=== PATIENT | male | born 1985 | race Asian ===

== ENCOUNTER 2019-09-04 12:36 | Emergency (ER) | payer OTHER ==
--- NOTE | 2019-09-04 13:48 | ED ---
Abdominal Pain/Female - HPI Summary HPI Summary: 34 y/o M presenting to [facility] c/o RUQ pain x3 days. - History of Current Complaint Chief Complaint: EDAbdPain Stated Complaint: ABOMINAL PAIN PER PT Time Seen by Provider: 09/04/19 13:46 Pain Intensity: 4 Allergies/Adverse Reactions: Allergies Allergy/AdvReac Type Severity Reaction Status Date / Time No Known Allergies Allergy Verified 09/04/19 12:41 Home Medications: Home Medications NK [No Home Medications Reported] 09/04/19 [History Confirmed 09/04/19] PMH/Surg Hx/FS Hx/Imm Hx Infectious Disease History: No Infectious Disease History: Denies: Traveled Outside the [place] in Last 30 Days - Social History Alcohol Use: None Substance Use Type: Reports: None Hx Tobacco Use: No Smoking Status (MU): Never Smoked Tobacco Physical Exam - Summary Physical Exam Summary: Constitutional: Well-developed, Well-nourished, Alert. (-) Distressed Skin: Warm, Dry HENT: Normocephalic; Atraumatic Eyes: Conjunctiva normal Neck: Musculoskeletal ROM normal neck. (-) JVD, (-) Stridor, (-) Nuchal rigidity Cardio: Rhythm regular, rate normal, Heart sounds normal; Intact distal pulses; Radial pulses are 2+ and symmetric. (-) Murmur Pulmonary/Chest wall: Effort normal. (-) Respiratory distress, (-) Wheezes, (-) Rales Abd: Soft, (-) tenderness, (-) Distension, (-) Guarding, (-) Rebound Musculoskeletal: (-) Edema Lymph: (-) Cervical adenopathy Neuro: Alert, Oriented x3 Psych: Mood and affect Normal Triage Information Reviewed: Yes Vital Signs On Initial Exam: Initial Vitals Temp Pulse Resp BP Pulse Ox 97.2 F 103 18 144/102 98 09/04/19 12:37 09/04/19 12:37 09/04/19 12:37 09/04/19 12:37 09/04/19 12:37 Vital Signs Reviewed: Yes Procedures - Sedation Patient Received Moderate/Deep Sedation with Procedure: No Diagnostics - Vital Signs Vital Signs Temp Pulse Resp BP Pulse Ox 09/04/19 13:38 98.5 F 85 132/85 97 09/04/19 12:37 97.2 F 103 18 144/102 98 - Laboratory Lab Statement: Any lab studies that have been ordered have been reviewed, and results considered in the medical decision making process. Discharge ED - Discharge Plan Referrals: Estevan Regan MD [Primary Care Provider] - - Attestation Statements Document Initiated by Scribe: Yes Documenting Scribe: Karyna Prieto Provider For Whom Scribe is Documenting (Include Credential): April Thakur MD Scribe Attestation: Karyna Orta, scribed for April Thakur MD on 09/04/19 at 1350.
--- NOTE | 2019-09-04 13:56 | ED ---
Abdominal Pain/Male - HPI Summary HPI Summary: 34 y/o M without any PMHx presenting to [facility] c/o worsening 4/10 RUQ pain described as stretching starting 4-5 days ago. Pain is worse after eating. Started as intermittent. Now constant. He denies fever, nausea/vomiting/diarrhea , cough. No surgical hx. No FHx. - History of Current Complaint Chief Complaint: EDAbdPain Stated Complaint: ABOMINAL PAIN PER PT Time Seen by Provider: 09/04/19 13:46 Hx Obtained From: Patient Onset/Duration: Lasting Days - 4-5, Still Present Timing: Constant, Intermittent Severity Currently: Moderate Pain Intensity: 4 Pain Scale Used: 0-10 Numeric Location: Discrete At: RUQ Character: Other: - stretching Aggravating Factor(s): Food Alleviating Factor(s): Nothing Associated Signs And Symptoms: Positive: Negative - fever, n/v/d, cough - Allergies/Home Medications Allergies/Adverse Reactions: Allergies Allergy/AdvReac Type Severity Reaction Status Date / Time No Known Allergies Allergy Verified 09/04/19 12:41 Home Medications: Home Medications NK [No Home Medications Reported] 09/04/19 [History Confirmed 09/04/19] PMH/Surg Hx/FS Hx/Imm Hx Endocrine/Hematology History: Denies: Hx Diabetes Cardiovascular History: Denies: Hx Hypertension Sensory History: Reports: Hx Contacts or Glasses Opthamlomology History: Reports: Hx Contacts or Glasses - Surgical History Surgical History: None Infectious Disease History: No Infectious Disease History: Denies: Traveled Outside the [place] in Last 30 Days - Family History Known Family History: Negative: Hypertension, Diabetes - Social History Alcohol Use: None Substance Use Type: Reports: None Smoking Status (MU): Never Smoked Tobacco Review of Systems Negative: Fever Negative: Cough Positive: Abdominal Pain - RUQ. Negative: Vomiting, Diarrhea, Nausea All Other Systems Reviewed And Are Negative: Yes Physical Exam - Summary Physical Exam Summary: Constitutional: Well-developed, Well-nourished, Alert. (-) Distressed Skin: Warm, Dry HENT: Normocephalic; Atraumatic Eyes: Conjunctiva normal Neck: Musculoskeletal ROM normal neck. (-) JVD, (-) Stridor, (-) Nuchal rigidity Cardio: Rhythm regular, rate normal, Heart sounds normal; Intact distal pulses; Radial pulses are 2+ and symmetric. (-) Murmur Pulmonary/Chest wall: Effort normal. (-) Respiratory distress, (-) Wheezes, (-) Rales Abd: Soft, RUQ tenderness, (-) Distension, (-) Guarding, (-) Rebound Musculoskeletal: (-) Edema Lymph: (-) Cervical adenopathy Neuro: Alert, Oriented x3 Psych: Mood and affect Normal Triage Information Reviewed: Yes Vital Signs On Initial Exam: Initial Vitals Temp Pulse Resp BP Pulse Ox 97.2 F 103 18 144/102 98 09/04/19 12:37 09/04/19 12:37 09/04/19 12:37 09/04/19 12:37 09/04/19 12:37 Vital Signs Reviewed: Yes Procedures - Sedation Patient Received Moderate/Deep Sedation with Procedure: No Diagnostics - Vital Signs Vital Signs Temp Pulse Resp BP Pulse Ox 09/04/19 13:38 98.5 F 85 132/85 97 09/04/19 12:37 97.2 F 103 18 144/102 98 - Laboratory Result Diagrams: 09/04/19 13:55 09/04/19 13:55 Lab Statement: Any lab studies that have been ordered have been reviewed, and results considered in the medical decision making process. - Ultrasound Abdomen Ultrasound Interpretation Completed By: Radiologist - IMPRESSION: #. Hepatosteatosis. #. Negative for gallbladder pathology. ED physician has reviewed this report. Abdominal Pain Male Course/Dx - Course Course Of Treatment: 34 -year-old male presenting with right upper quadrant abdominal pain. DDx includes cholecystitis, choledocholithiasis, pancreatitis, functional abdominal pain, GERD. Exam relatively unremarkable today, no rigidity or suggestions of acute surgical abd. Pt with negative Farias's on exam but reporting RUQ tenderness, will check US. Lipase to evaluate for pancreatitis. Will obtain cbc to assess for underlying infection. Will continue to monitor. US neg for GB pathology, labs w/o leukocytosis. Tolerating PO. Unclear source of pain but can f/u w PCP - Diagnoses Provider Diagnoses: RUQ abdominal pain Discharge ED - Sign-Out/Discharge Documenting (check all that apply): Patient Departure - Discharge Plan Condition: Stable Disposition: HOME Patient Education Materials: Acute Abdominal Pain (ED) Referrals: Estevan Regan MD [Primary Care Provider] - Additional Instructions: You were seen in the emergency department for abdominal pain. Your labs do not show any evidence of infection, your ultrasound did not show any abnormalities of your gallbladder. Please follow up with your primary care doctor in next 2-3 days and return to emergency department for worsening pain, fevers, inability to eat or drink, or concerning symptoms. It was a pleasure taking care of you today. - Billing Disposition and Condition Condition: STABLE Disposition: Home - Attestation Statements Document Initiated by Gi: Yes Documenting Scribe: Karyna Priteo Provider For Whom Gi is Documenting (Include Credential): April Thakur MD Scribe Attestation: I, Karyna Prieto, scribed for April Thakur MD on 09/04/19 at 1604. Scribe Documentation Reviewed: Yes Provider Attestation: The documentation as recorded by the scribKaryna bartlett accurately reflects the service I personally performed and the decisions made by me, April Thakur MD Status of Scribe Document: Viewed
[2019-09-04 14:16] LABS: ABS Eosinophils 0.3 10^3/ul (0-0.6); ABS Lymphocytes 1.1 10^3/ul (1.0-4.8); ABS Monocytes 0.3 10^3/ul (0-0.8); ABS Neutrophils 3.2 10^3/ul (1.5-7.7); Eosinophil % 6.5 %; Hematocrit 46 % (42-52); Hemoglobin 15.8 g/dL (14.0-18.0); Mean Corpuscular HGB Conc 34 g/dL (31-36); Mean Corpuscular Hemoglobin 29 pg (27-31); Mean Corpuscular Volume 85 fL (80-94); Mean Platelet Volume 8.5 fL (7.4-10.4); Platelet Count 201 10^3/uL (150-450); Red Blood Count 5.46 10^6 /uL (4.18-5.48); Red Cell Distribution Width 12 % (10-15)
[2019-09-04 14:45] LABS: Albumin 4.6 g/dL (3.2-5.2); Albumin/Globulin Ratio 1.5 (1-3); BUN/Creatinine Ratio 11.1 (8-20); EGFR African American 116.9 (>60); EGFR Non-African American 96.6 (>60); Potassium 3.6 mmol/L (3.5-5.0); Total Bilirubin 0.5 mg/dL (0.2-1.0); Total Protein 7.6 g/dL (6.4-8.9)
[2019-09-04 16:27] VITALS: BP 117/83
== END 2019-09-04 16:26 | disposition home or self-care (01) ==
LOC: ED 12:36
DX: R10.11 Right upper quadrant pain (principal); K81.9 Cholecystitis, unspecified; K80.50 Calculus of bile duct without cholangitis or cholecystitis without obstruction; K21.9 Gastro-esophageal reflux disease without esophagitis
CPT/HCPCS: 36415; 76705; 80053; 83690; 85025; 99282